=== PATIENT | female | born 1940 | race Caucasian/White ===

== ENCOUNTER 2016-08-07 10:19 | Emergency (ER) | payer OTHER ==
[~2016-08-07] VITALS: Ht 157.5 cm; Wt 49.8 kg
[2016-08-07] MEDS ORDERED: OXYMETAZOLINE NASAL SPRAY 0.05%, 15ML ONE (10:36)
[2016-08-07] MEDS ORDERED: OXYMETAZOLINE NASAL SPRAY 0.05%, 15ML NAS ONE (11:00)
[2016-08-07] MEDS ORDERED: PLEASE ENTER ALLERGIES MC SCH ×2 (11:30)
[2016-08-07] MEDS ORDERED: ASPI-496 PO (11:33)
[2016-08-07] MEDS ORDERED: METO25TA35 PO (11:33)
[2016-08-07] MEDS ORDERED: LEVO25TA4 PO (11:33)
[2016-08-07] MEDS ORDERED: LOSA25TA2 PO (11:33)
[2016-08-07] MEDS ORDERED: BACITRACIN ZINC OINT 500U/GM, 0.9 GM ONE (11:55)
[2016-08-07] MEDS ORDERED: SILVER NITRATE STICK TP ONE (11:55)
[2016-08-07 13:07] VITALS: BP 176/66
== END 2016-08-07 13:09 | disposition home or self-care (01) ==
LOC: ED 11:33
DX: R04.0 Epistaxis (principal); I10 Essential (primary) hypertension; E78.00 Pure hypercholesterolemia, unspecified; E05.90 Thyrotoxicosis, unspecified without thyrotoxic crisis or storm
CPT/HCPCS: 30901; 36415; 85025; 85610